=== PATIENT | female | born 1975 | race African-American/Black ===

== ENCOUNTER 2017-10-13 08:57 | Emergency (ER) | payer OTHER ==
[2017-10-13] MEDS ORDERED: Ipratropium Bromide 2.5 ml Neb ONE ×3 (09:24→09:28)
--- NOTE | 2017-10-13 09:54 | RAD ---
AP CHEST: Indication: Shortness of breath, wheezing. FINDINGS: Low lung volumes accentuate the cardiac silhouette and pulmonary vasculature. There is increased dens ity involving the lower lobes which may be related to overlying soft tissues. There is a dual-lead pa cemaker overlying the left chest wall. No definite pneumothorax is evident. No acute osseous abnormal ity is evident. IMPRESSION: 1. Limited exam due to low lung volumes and decreased through penetration. 2. Repeat two views of the chest with improved inspiration. POS: [facility]
[2017-10-13] MEDS ORDERED: methylPREDNISolone Sod Succ/PF 125 MG/2 ML VIAL ONE ×2 (11:10→11:26)
--- NOTE | 2017-10-13 11:18 | RAD ---
RADIOGRAPH CHEST 2 VIEWS: Date: 10/13/2017 Time: 10:49 a.m. HISTORY: COMPARISON: 08/05/2017 (The one view chest radiograph of 10/13/2017 obtained earlier this morning, at 9:27 a.m., is very sub optimal and will not be used for comparison). FINDINGS: There is a new finding of diffuse bilateral mixed nodular and interstitial densities. There are air- space densities at the left mid and left lower lung zones. Cardiac size is at the upper limits of no rmal. No moderate size or large pleural effusion. No pneumothorax. Left subclavian dual-lead pacem skyla. There is pulmonary vascular engorgement. IMPRESSION: 1. Bilateral mixed interstitial and nodular pulmonary densities. 2. Air-space disease in the left mid and lower lung zones. 3. Uncertain whether this represents pulmonary edema, pneumonia, pulmonary metastasis, or a combinat ion of these. 4. A CT chest may be useful. RAFAELA [] POS: [facility]
[2017-10-13 11:31] LABS: #Basophils 0.1 thou/uL (0.0-0.2); #Eosinphils 0.2 thou/uL (0.0-0.7); #Lymphocytes 1.2 thou/uL (1.20-3.40); #Monocytes 0.7 thou/uL (0.11-0.59); #Neutrophils 2.6 thou/uL (1.40-6.50); %Basophils 2.1 % (0.0-1.0); %Eosinophils 4.1 % (0.0-10.0); %Lymphocytes 25.1 % (21.0-51.0); %Monocytes 13.9 % (0.0-10.0); %Neutrophils 54.7 % (42.0-75.0); Hemoglobin 12.1 g/dL (12.0-16.0); Mean Corpuscular HGB CONC 31.7 g/dL (32.0-36.0); Mean Corpuscular Hemoglobin 26.8 pg (27.0-31.0); Mean Corpuscular Volume 84.6 fl (81.0-99.0); Mean Platelet Volume 6.2 fL (7.4-10.4); Platelet Count 366 thou/uL (130-400); RBC Distribution Width 16.1 % (11.5-14.5); Red Blood Cell (RBC) Count 4.53 mill/uL (4.20-5.40); White Blood Cell (WBC) Count 4.8 thou/uL (4.8-10.8)
[2017-10-13] MEDS ORDERED: Albuterol Sulfate 2.5 mg/0.5 ml Neb ONE ×2 (11:46→12:14)
[2017-10-13 11:47] LABS: ALT (SGPT) 12 U/L (8-55); AST (SGOT) 32 U/L (5-34); Albumin 3.6 g/dL (3.5-5.0); Alkaline Phosphatase 103 U/L (40-150); Anion Gap 17 mmol/L (10-20); BUN (Urea Nitrogen) 13 mg/dL (7.0-18.7); Bilirubin, Total 0.7 mg/dL (0.2-1.2); Calc. Creatinine Clearance 0 mL/min (70-130); Calcium 9.7 mg/dL (7.8-10.44); Carbon Dioxide 25 mmol/L (22-29); Chloride 99 mmol/L (98-107); Estimated GFR-MDRD 46; Globulin 5.1 g/dL (2.4-3.5); Glucose 91 mg/dL (70-105); Potassium 4.3 mmol/L (3.5-5.1); Protein, Total 8.7 g/dL (6.0-8.3); Sodium 137 mmol/L (136-145)
== END 2017-10-13 16:24 | disposition short-term general hospital (02) ==
LOC: NAV ERS 08:57
DX: D86.0 Sarcoidosis of lung (principal); R09.02 Hypoxemia; I11.0 Hypertensive heart disease with heart failure; I50.9 Heart failure, unspecified; I49.9 Cardiac arrhythmia, unspecified; M10.9 Gout, unspecified; D50.0 Iron deficiency anemia secondary to blood loss (chronic); K21.9 Gastro-esophageal reflux disease without esophagitis; G47.30 Sleep apnea, unspecified; F41.9 Anxiety disorder, unspecified; Z79.899 Other long term (current) drug therapy; Z79.4 Long term (current) use of insulin
CPT/HCPCS: 36416; 71045; 71046; 80053; 85025; 85652; 86140; 94640; 94644; 94645; 94760; 96374; 96376; J2930; J7611; J7620; J7644